=== PATIENT | female | born 1960 | race Caucasian/White ===

== ENCOUNTER 2016-09-27 18:41 | Emergency (ER) | payer OTHER ==
[2016-09-27] MEDS ORDERED: oxyCOD/ACETAMIN 5 MG/325 MG TABLET PO STA (20:42)
[2016-09-27] MEDS ORDERED: oxyCOD/ACETAMIN 5 MG/325 MG TABLET PO ONE (20:43)
[2016-09-27] MEDS ORDERED: KETOROLAC 60 MG/2 ML VIAL IM STA (21:03)
[2016-09-27] MEDS ORDERED: KETOROLAC 60 MG/2 ML VIAL ONE (21:08)
[2016-09-27] MEDS ORDERED: oxyCODONE/ACET 5/325 Prepack 4 PO STA (22:18)
[2016-09-27] MEDS ORDERED: oxyCODONE/ACET 5/325 Prepack 4 PO ONE (22:23)
== END 2016-09-27 22:35 | disposition home or self-care (01) ==
DX: S82.142A Displaced bicondylar fracture of left tibia, initial encounter for closed fracture (principal); X50.1XXA Overexertion from prolonged static or awkward postures, initial encounter; W54.1XXA Struck by dog, initial encounter; I10 Essential (primary) hypertension
CPT/HCPCS: 73564; 73700; 96372; 99283; A9270

== ENCOUNTER 2016-10-10 08:16 | Inpatient (IN) | payer OTHER ==
[~2016-10-10 08:16] MED LIST: ceFAZolin 2 GM/50 ML 50 ML IV ONE
[2016-10-10] MEDS ORDERED: LACTATED RINGERS 1,000 ML IV ONE (08:38)
[2016-10-10] MEDS ORDERED: KETOROLAC 30 MG/ML VIAL IVP ONE (15:00)
[2016-10-10] MEDS ORDERED: PROPOFOL 200 MG/20 ML VIAL IVP ONE (15:00)
[2016-10-10] MEDS ORDERED: ePHEDrine 50 MG/ML AMP IVP ONE (15:00)
[2016-10-10] MEDS ORDERED: fentaNYL 100 MCG/2 ML VIAL IVP ONE (15:00)
[2016-10-10] MEDS ORDERED: ONDANSETRON 4 MG/2 ML VIAL IVP ONE (15:00)
[2016-10-10] MEDS ORDERED: MIDAZOLAM 2 MG/2 ML VIAL IVP ONE (15:00)
[2016-10-10] MEDS ORDERED: DEXAMETHASONE 4 MG/ML VIAL IVP ONE (15:00)
[2016-10-10] MEDS ORDERED: BUPIVACAINE 0.5%-EPI 1:200000 PF 30 ML VIAL SUBQ ONE (16:18)
[2016-10-10] MEDS ORDERED: ACETAMINOPHEN 1,000 MG/100 ML 100 ML IV PRN (16:22)
[2016-10-10] MEDS ORDERED: ZOLPIDEM 5 MG TABLET PO PRN (16:22)
[2016-10-10] MEDS ORDERED: PROCHLORPERAZINE 10 MG/2 ML VIAL IVP PRN (16:22)
[2016-10-10] MEDS ORDERED: ACETAMINOPHEN 325 MG TABLET PO PRN (16:22)
[2016-10-10] MEDS ORDERED: diphenhydrAMINE 25 MG CAPSULE PO PRN (16:22)
[2016-10-10] MEDS ORDERED: ONDANSETRON 4 MG/2 ML VIAL IVP PRN (16:22)
[2016-10-10] MEDS ORDERED: BISACODYL 10 MG SUPP PR PRN (16:22)
[2016-10-10] MEDS: HYDROmorphone 1 MG/ML SYRINGE ONE ×5 (16:25→16:53)
[2016-10-10] MEDS ORDERED: LORazepam 2 MG/ML SYRINGE ONE (16:44)
[2016-10-10] MEDS: SODIUM CHLORIDE FLUSH 0.9% 10 ML SYRINGE IVP SCH (21:57)
[2016-10-10] MEDS: LISINOPRIL 20 MG TABLET PO SCH (21:57)
[2016-10-10] MEDS: ceFAZolin 2 GM/50 ML 50 ML IV SCH (22:02)
[2016-10-10] MEDS: oxyCOD/ACETAMIN 5 MG/325 MG TABLET PO PRN (22:08)
[2016-10-10] MEDS: HYDROmorphone 1 MG/ML SYRINGE IVP PRN (22:09)
[2016-10-11] MEDS: oxyCOD/ACETAMIN 5 MG/325 MG TABLET PO PRN ×5 (02:47→23:28)
[2016-10-11] MEDS: ceFAZolin 2 GM/50 ML 50 ML IV SCH (06:29)
[2016-10-11] MEDS: HYDROmorphone 1 MG/ML SYRINGE IVP PRN ×2 (07:46→15:33)
[2016-10-11] MEDS: ENOXAPARIN 40 MG/0.4 ML SYRINGE SUBQ SCH (08:13)
[2016-10-11] MEDS: hydroCHLOROthiazide 12.5 MG CAPSULE PO SCH (08:14)
[2016-10-11] MEDS: SODIUM CHLORIDE FLUSH 0.9% 10 ML SYRINGE IVP SCH ×3 (08:27→21:28)
[2016-10-11] MEDS ORDERED: LISINOPRIL 20 MG TABLET PO SCH (09:00)
[2016-10-11] MEDS: LISINOPRIL 20 MG TABLET PO SCH (21:25)
[2016-10-11] MEDS: DOCUSATE SODIUM 100 MG CAPSULE PO PRN (23:28)
[2016-10-12] MEDS: ZOLMITRIPTAN PO PRN (04:05)
[2016-10-12] MEDS: oxyCOD/ACETAMIN 5 MG/325 MG TABLET PO PRN ×3 (04:08→12:19)
[2016-10-12] MEDS: SODIUM CHLORIDE FLUSH 0.9% 10 ML SYRINGE IVP SCH ×3 (06:11→15:35)
[2016-10-12] MEDS: HYDROmorphone 1 MG/ML SYRINGE IVP PRN ×3 (07:46→22:38)
[2016-10-12] MEDS: ENOXAPARIN 40 MG/0.4 ML SYRINGE SUBQ SCH (08:36)
[2016-10-12] MEDS: DOCUSATE SODIUM 100 MG CAPSULE PO PRN (08:36)
[2016-10-12] MEDS: hydroCHLOROthiazide 12.5 MG CAPSULE PO SCH (08:36)
[2016-10-12] MEDS: KETOROLAC 30 MG/ML VIAL IVP PRN ×2 (15:35→21:35)
[2016-10-12] MEDS: SODIUM CHLORIDE FLUSH 0.9% 10 ML SYRINGE IVP PRN ×2 (21:35→22:38)
[2016-10-12] MEDS: LISINOPRIL 20 MG TABLET PO SCH (21:35)
[2016-10-13] MEDS ORDERED: SODIUM CHLORIDE 0.9% 10 ML ONE (04:35)
[2016-10-13] MEDS: KETOROLAC 30 MG/ML VIAL IVP PRN ×2 (04:40→10:46)
[2016-10-13] MEDS: SODIUM CHLORIDE FLUSH 0.9% 10 ML SYRINGE IVP PRN ×2 (04:41→10:49)
[2016-10-13] MEDS: ZOLMITRIPTAN PO PRN (05:44)
[2016-10-13] MEDS: SODIUM CHLORIDE FLUSH 0.9% 10 ML SYRINGE IVP SCH (05:46)
[2016-10-13] MEDS: hydroCHLOROthiazide 12.5 MG CAPSULE PO SCH (08:52)
[2016-10-13] MEDS: oxyCOD/ACETAMIN 5 MG/325 MG TABLET PO PRN ×2 (08:52→13:38)
[2016-10-13] MEDS: ENOXAPARIN 40 MG/0.4 ML SYRINGE SUBQ SCH (08:53)
== END 2016-10-13 14:55 | disposition home or self-care (01) | DRG 494 ==
PROC: 0QSH04Z Reposition Left Tibia with Internal Fixation Device, Open Approach (ICD-10-PCS; principal; 2016-10-10 09:45)
DX: S82.142A Displaced bicondylar fracture of left tibia, initial encounter for closed fracture (principal); W54.1XXA Struck by dog, initial encounter; S83.262A Peripheral tear of lateral meniscus, current injury, left knee, initial encounter; M17.12 Unilateral primary osteoarthritis, left knee; N19 Unspecified kidney failure; I10 Essential (primary) hypertension; G43.909 Migraine, unspecified, not intractable, without status migrainosus; E89.0 Postprocedural hypothyroidism; Z79.891 Long term (current) use of opiate analgesic; Z79.899 Other long term (current) drug therapy; Y93.K1 Activity, walking an animal; Y92.830 Public park as the place of occurrence of the external cause; Y99.8 Other external cause status

== ENCOUNTER 2016-11-21 16:04 | Outpatient (CLI) | payer OTHER | END 2016-11-21 16:05 | disposition home or self-care (01) | DX: S82.142D Displaced bicondylar fracture of left tibia, subsequent encounter for closed fracture with routine healing (principal); M17.12 Unilateral primary osteoarthritis, left knee ==

== ENCOUNTER 2016-12-20 16:03 | Outpatient (CLI) | payer OTHER | END 2016-12-20 16:04 | disposition home or self-care (01) | DX: S82.121D Displaced fracture of lateral condyle of right tibia, subsequent encounter for closed fracture with routine healing (principal); Z98.890 Other specified postprocedural states; Z47.89 Encounter for other orthopedic aftercare ==